=== PATIENT | female | born 1990 | race Hispanic/Latino ===

== ENCOUNTER → 2020-10-16 | Outpatient (REF) | payer OTHER | LOC: M LAB 19:50 | PROVIDERS: ATTEND Physician Assistant | DX: R10.30 Lower abdominal pain, unspecified (principal) ==

== ENCOUNTER → 2020-10-17 | Outpatient (CLI) | payer OTHER ==
[2020-10-17 17:30] LABS: ALBUMIN 3.7 GM/DL (3.2-5.2); ALT/SGPT 10 U/L (12-78); BILIRUBIN,TOTAL 0.3 MG/DL (0.2-1.0); BLOOD UREA NITROGEN 7 MG/DL (7-18); CALCIUM LEVEL 8.9 MG/DL (8.5-10.1); CARBON DIOXIDE LEVEL 27 MEQ/L (21-32); CHLORIDE LEVEL 108 MEQ/L (98-107); CREATININE FOR GFR 0.59 MG/DL (0.55-1.30); GLOMERULAR FILTRATION RATE > 60.0 (>60); GLUCOSE, FASTING 87 MG/DL (70-100); LIPASE 99 U/L (73-393); POTASSIUM SERUM 4.2 MEQ/L (3.5-5.1); SODIUM LEVEL 142 MEQ/L (136-145); TOTAL PROTEIN 7.2 GM/DL (6.4-8.2)
[2020-10-17 17:35] LABS: BASO % 0.6 % (0.0-1.0); EOS # 0.1 10^3/uL (0.0-0.5); HEMATOCRIT 37.3 % (36.0-47.0); LYMPH # 1.6 10^3/uL (1.5-5.0); LYMPH % 32.3 % (24.0-44.0); MEAN CORPUSCULAR HGB CONC 32.2 g/dl (32.0-36.5); MEAN CORPUSCULAR VOLUME 93.3 fl (80.0-96.0); MONO # 0.3 10^3/uL (0.0-0.8); MONO % 6.7 % (2.0-8.0); NEUTROPHILS # 2.9 10^3/uL (1.5-8.5); PLATELET COUNT, AUTOMATED 270 10^3/uL (150-450); WHITE BLOOD COUNT 4.9 10^3/uL (4.0-10.0)
== END ==
LOC: M WUC 11:29
PROVIDERS: ATTEND Physician Assistant
DX: R10.30 Lower abdominal pain, unspecified (principal)

== ENCOUNTER 2020-11-15 18:08 | Emergency (ER) | payer OTHER ==
[~2020-11-15] VITALS: Ht 160 cm; Wt 93.1 kg
[2020-11-15 20:52] LABS: BASO % 0.4 % (0.0-1.0); EOS # 0.1 10^3/uL (0.0-0.5); EOS % 1.3 % (0.0-3.0); HEMATOCRIT 38.8 % (36.0-47.0); HEMOGLOBIN 12.8 g/dl (12.0-15.5); LYMPH # 1.6 10^3/uL (1.5-5.0); LYMPH % 21.4 % (24.0-44.0); MEAN CORPUSCULAR HEMOGLOBIN 29.8 pg (27.0-33.0); MEAN CORPUSCULAR VOLUME 90.2 fl (80.0-96.0); MONO # 0.7 10^3/uL (0.0-0.8); MONO % 9.4 % (2.0-8.0); NEUTROPHILS # 5.1 10^3/uL (1.5-8.5); NEUTROPHILS % 67.2 % (36.0-66.0); PLATELET COUNT, AUTOMATED 260 10^3/uL (150-450); WHITE BLOOD COUNT 7.5 10^3/uL (4.0-10.0)
[2020-11-15 21:27] LABS: HCG, SERUM QUALITATIVE NEGATIVE (NEGATIVE)
[2020-11-15 22:22] VITALS: BP 132/82
--- NOTE | 2020-11-15 23:13 | REPVR ---
PROCEDURE INFORMATION: Exam: US Nonobstetric Pelvis; Complete ((transabdominal and transvaginal) Exam date and time: 11/15/20 (9:29pm) Age: 30 years old Clinical indication: Pelvic pain and vaginal bleeding TECHNIQUE: Imaging protocol: Transabdominal and transvaginal pelvic non-obstetric ultrasound. Complete examination. Real time ultrasound with image documentation. COMPARISON: No relevant prior studies available FINDINGS: The LMP is not provided. The uterus is anteverted, measuring 8.1 x 4.5 x 4.9 cm in dimensions. No uterine mass is seen. The endometrium measures 7.5 mm in thickness. The right ovary measures 3.5 x 2.9 x 2.8 cm in size. Large simple right ovarian cyst (3.1 x 2.8 x 2.7 cm size) (2.9 cm avg. size). The left ovary measures 6.5 x 4.0 x 6.7 cm in size. Large simple left ovarian cyst (6.2 x 4.0 x 6.5 cm size) (5.6 cm avg. size). There is no evidence of ovarian torsion on Doppler evaluation. Trace free fluid. No solid adnexal masses. The uruinary bladder appears unremarkable. Pre-void urinary bladder volume = 69 ml. IMPRESSION: No acute pathology. No solid pelvic mass. Each ovary contains a prominent simple cyst. No evidence of ovarian torsion. Trace amount of free fluid (probably physiological). Electronically signed by: Viji Wan On 11/15/2020 23:13:28 PM
== END 2020-11-15 22:24 | disposition home or self-care (01) ==
LOC: M ED 18:08
DX: N93.9 Abnormal uterine and vaginal bleeding, unspecified (principal); N83.202 Unspecified ovarian cyst, left side

== ENCOUNTER → 2022-02-15 | Outpatient (REF) | LOC: M LAB REF 18:25 | DX: Z36.89 Encounter for other specified antenatal screening (principal) ==